=== PATIENT | male | born 1970 | race Caucasian/White ===

== ENCOUNTER → 2016-10-27 | Day surgery (SDC) | payer OTHER ==
[2016-10-23 14:25] LABS: BILIRUBIN NEGATIVE (NEGATIVE); BLOOD 1+ (NEGATIVE); CLARITY SL CLOUDY (CLEAR); COLOR YELLOW (YELLOW); GLUCOSE NEGATIVE (NEGATIVE); KETONE NEGATIVE (NEGATIVE); LEUKO ESTERASE 3+ (NEGATIVE); NITRITE POSITIVE (NEGATIVE); PROTEIN NEGATIVE (NEGATIVE); UROBILINOGEN 0.2 E.U./dl (0.2-1.0)
[2016-10-23 14:49] LABS: BACTERIA TRACE; RBC 0-2 rbc/hpf (0-2); WBC TNTC wbc/hpf (0-5)
[~2016-10-27] VITALS: Ht 190.5 cm; Wt 77.1 kg
[~2016-10-27] MED LIST: 'CLONIDINE0.1 MG PO; AMLODIPINE BESYL5 MG PO; BACTRIM 400 MG-1 TAB PO; CARVEDILOL3.125 MG PO; CARVEDILOL6.25 MG PO; CIPRO250 MG PO; Ciprofloxacin500 MG PO; FEROSUL325 MG PO; HYDROCODONE BIT1 T11 PO; HYDROXYZINE PAM25 MG PO; LOMOTIL 0.025 M1 TA1 PO; NORCO 5-325 TA1 EACH PO; NORTRIPTYLINE25 M1 PO; OMEPRAZOLE D/R20 MG PO; OSTERA TABLET1 EACH PO; PYRIDIUM200 M1 PO; QUETIAPINE FUMA50 M1 PO; TAB-A-VITE1 TA1 PO; VICODIN 5-3001 EACH PO; ZOFRAN ODT4 MG SL
--- NOTE | ~2016-10-27 | O ---
[place], [place] OPERATIVE NOTE [id number] UNIT #: [id number] ROOM: DOCTOR: VALENTE RAMSEY MD BIRTHDATE: [birth year] DOS: 10/27/2016 PREOPERATIVE DIAGNOSES: Neurogenic bladder, left hydronephrosis. POSTOPERATIVE DIAGNOSES: Neurogenic bladder, left hydronephrosis. PROCEDURE: Cystoscopy, left ureteral stent exchange. FINDINGS: Preop KUB taken shows a proximally displaced right ureteral stent to the proximal end, is in the upper ureter with most of the stent looked coiled into the bladder. DESCRIPTION OF PROCEDURE: After obtaining satisfactory general anesthesia, the patient was placed in lithotomy position. Genitalia was prepped and draped in the sterile manner. A 21 ACMI scope placed into the bladder, stent was seen in the bladder. The bladder loop was then caught with the stent remover and brought out to the urethral meatus. A 0.35 guidewire was then placed through the stent and it was advanced all the way up into the kidney. The stent was then removed. The cystoscope was backloaded over the guidewire and I replaced the stent with a size 26, 6-Samoan ureteral stent. A good pigtailing was seen in the kidney as well as in the bladder. The patient tolerated the procedure very well. He was then recovered from sedation and transferred to recovery room in satisfactory condition. VALENTE RAMSEY MD CM:OPRECORD:OPERATIVE NOTE [id number] VALENTE RAMSEY MD 11/05/16 1203 interface
[2016-10-27 10:10] VITALS: BP 131/80
[2016-10-27 11:00] VITALS: BP 134/86
[2016-10-27 11:15] VITALS: BP 124/86
[2016-10-27 11:30] VITALS: BP 137/77
== END | disposition home or self-care (01) ==
LOC: SDC 10-23 12:30
PROVIDERS: Urology
DX: T83.122A Displacement of indwelling ureteral stent, initial encounter (principal); N31.9 Neuromuscular dysfunction of bladder, unspecified; N13.30 Unspecified hydronephrosis; Z90.5 Acquired absence of kidney; I10 Essential (primary) hypertension; Z80.9 Family history of malignant neoplasm, unspecified; Z82.49 Family history of ischemic heart disease and other diseases of the circulatory system

== ENCOUNTER → 2017-01-02 | Outpatient (CLI) | payer OTHER ==
[2017-01-02 13:52] LABS: BASO % 0.7 % (0.0-1.0); EOS # 0.3 10*3/uL (0.0-0.4); EOS % 4.3 % (1.0-4.0); HEMATOCRIT 36.2 % (42.0-52.0); HEMOGLOBIN 11.6 g/dl (14.0-18.0); LYMPH # 1.6 10*3/uL (1.3-4.4); LYMPH % 25.7 % (27.0-41.0); MEAN CORPUSCULAR HGB 27.9 pg (27.0-31.0); MEAN PLATELET VOLUME 9.8 fl (9.6-12.3); MONO # 0.4 10*3/uL (0.1-1.0); MONO % 6.8 % (3.0-9.0); NEUT # 3.8 10*3/uL (2.3-7.9); NEUT % 62.3 % (47.0-73.0); PLATELET COUNT AUTOMATED 214 10*3/uL (130-400); RED BLOOD COUNT 4.16 10*6/uL (4.50-5.90); RED CELL DISTRI WIDTH 15.3 % (0-14.5)
[2017-01-02 14:19] LABS: POTASSIUM 4.4 mmol/L (3.5-5.1)
== END | disposition home or self-care (01) ==
LOC: LAB 13:20
PROVIDERS: Urology
DX: Z01.818 Encounter for other preprocedural examination (principal)

== ENCOUNTER → 2017-01-26 | Day surgery (SDC) | payer OTHER ==
[~2017-01-26] VITALS: Ht 190.5 cm; Wt 79.4 kg
--- NOTE | ~2017-01-26 | O ---
[place], [place] OPERATIVE NOTE [id number] UNIT #: [id number] ROOM: DOCTOR: VALENTE RAMSEY MD BIRTHDATE: [birth year] DOS: 01/26/2017 PROCEDURE: Cystoscopy and left ureteral stent exchange. FINDINGS: A KUB taken preop showed no evidence of a calcification on the kidney or bladder loop. DESCRIPTION OF PROCEDURE: After obtaining satisfactory sedation, the patient was placed in lithotomy position. Genitals prepped and draped in a sterile manner. A 21 ACMI cystoscope was then placed into the bladder without difficulty. Stent was seen coming from the left orifice. It was grasped, removed up to the external meatus. The 0.35 guidewire was then threaded through the stent and deployed all the way up into the kidney; however, the guidewire failed while trying to attempting backloading the cystoscope. The guidewire was then therefore completely removed. Cystoscope was replaced. Size 6 open-ended catheter was placed into the lower ureter. Contrast was injected. Hydroureter was noted. A 0.35 guidewire was then advanced through the open-ended catheter all the way up into the collecting system. The open-ended catheter was then advanced to the renal pelvis. The guidewire was removed and only about 2-3 mL of contrast was injected and renal pelvis was delineated. I then replaced the guidewire through the open-ended catheter. The open-ended catheter was removed and then backloaded. The size 6-Danish 28 cm ureteral stent was advanced all the way into the upper collecting system. The guidewire was removed and the stent was deployed with good pigtailing into upper collecting system and in the bladder. The patient tolerated the procedure very well. He was then recovered from sedation and was transferred to recovery room in satisfactory condition. VALENTE RAMSEY MD CM:OPRECORD:OPERATIVE NOTE [id number] VALENTE RAMSEY MD 01/26/17 1040 interface
[2017-01-26 08:45] VITALS: BP 141/77
[2017-01-26 09:40] VITALS: BP 128/71
[2017-01-26 09:55] VITALS: BP 130/79
[2017-01-26 10:10] VITALS: BP 138/73
== END | disposition home or self-care (01) ==
LOC: SDC 01-23 14:45
DX: N13.30 Unspecified hydronephrosis (principal); I10 Essential (primary) hypertension; Z82.49 Family history of ischemic heart disease and other diseases of the circulatory system; Z80.9 Family history of malignant neoplasm, unspecified

== ENCOUNTER 2017-02-03 11:03 | Emergency (ER) | payer OTHER ==
[~2017-02-03] VITALS: Ht 190.5 cm; Wt 79.4 kg
[2017-02-03 12:03] LABS: BILIRUBIN NEGATIVE (NEGATIVE); BLOOD 3+ (NEGATIVE); CLARITY SL CLOUDY (CLEAR); COLOR YELLOW (YELLOW); GLUCOSE NEGATIVE (NEGATIVE); KETONE NEGATIVE (NEGATIVE); LEUKO ESTERASE 3+ (NEGATIVE); NITRITE POSITIVE (NEGATIVE); PROTEIN TRACE (NEGATIVE); UROBILINOGEN 0.2 E.U./dl (0.2-1.0)
[2017-02-03 12:11] LABS: BACTERIA 1+
[2017-02-03 12:13] LABS: RBC 31-40 rbc/hpf (0-2); URINE REFLEX COMMENT YES (NO); WBC 51-100 wbc/hpf (0-5)
[2017-02-03 12:35] LABS: BASO # 0.1 10*3/uL (0.0-0.1); BASO % 0.8 % (0.0-1.0); EOS # 0.2 10*3/uL (0.0-0.4); EOS % 3.3 % (1.0-4.0); HEMATOCRIT 38.3 % (42.0-52.0); HEMOGLOBIN 12.3 g/dl (14.0-18.0); LYMPH # 1.7 10*3/uL (1.3-4.4); LYMPH % 25.2 % (27.0-41.0); MEAN CELL VOLUME 86.7 fl (80.0-94.0); MEAN CORPUSCULAR HGB 27.8 pg (27.0-31.0); MEAN CORPUSCULAR HGB CONC 32.1 g/dl (33.0-37.0); MEAN PLATELET VOLUME 9.3 fl (9.6-12.3); MONO # 0.5 10*3/uL (0.1-1.0); MONO % 7.6 % (3.0-9.0); NEUT # 4.2 10*3/uL (2.3-7.9); NEUT % 62.8 % (47.0-73.0); PLATELET COUNT AUTOMATED 203 10*3/uL (130-400); RED BLOOD COUNT 4.42 10*6/uL (4.50-5.90); WHITE BLOOD COUNT 6.6 10*3/uL (4.8-10.8)
[2017-02-03 12:49] LABS: ALBUMIN 3.8 gm/dl (3.1-4.5); BILIRUBIN, TOTAL 0.5 mg/dl (0.2-1.0); POTASSIUM 4.6 mmol/L (3.5-5.1); TOTAL PROTEIN 7.7 gm/dL (6.4-8.2)
[2017-02-03] MEDS ORDERED: CIPRO500 MG PO (15:18)
[2017-02-03] MEDS ORDERED: NORCO 5-325 TA1 EACH PO (15:18)
== END 2017-02-03 15:38 | disposition home or self-care (01) ==
LOC: ED 11:03
PROVIDERS: Student in an Organized Health Care Education/Training Program
DX: N39.0 Urinary tract infection, site not specified (principal); I10 Essential (primary) hypertension; Z91.041 Radiographic dye allergy status; Z88.6 Allergy status to analgesic agent; Z91.013 Allergy to seafood; Z79.899 Other long term (current) drug therapy

== ENCOUNTER → 2018-05-21 | Outpatient (CLI) | payer OTHER ==
[~2018-05-21] MED LIST changes: +CIPRO500 MG PO
[2018-05-21 09:12] LABS: BASO # 0.1 10*3/uL (0.0-0.1); BASO % 1.5 % (0.0-1.0); EOS # 0.5 10*3/uL (0.0-0.4); EOS % 8.1 % (1.0-4.0); HEMATOCRIT 42.9 % (42.0-52.0); HEMOGLOBIN 13.6 g/dl (14.0-18.0); LYMPH # 1.9 10*3/uL (1.3-4.4); LYMPH % 29.2 % (27.0-41.0); MEAN CELL VOLUME 89.7 fl (80.0-94.0); MEAN CORPUSCULAR HGB 28.5 pg (27.0-31.0); MEAN CORPUSCULAR HGB CONC 31.7 g/dl (33.0-37.0); MONO # 0.6 10*3/uL (0.1-1.0); MONO % 8.3 % (3.0-9.0); NEUT # 3.5 10*3/uL (2.3-7.9); NEUT % 52.6 % (47.0-73.0); PLATELET COUNT AUTOMATED 204 10*3/uL (130-400); RED BLOOD COUNT 4.78 10*6/uL (4.50-5.90); RED CELL DISTRI WIDTH 14.4 % (0-14.5); WHITE BLOOD COUNT 6.6 10*3/uL (4.8-10.8)
[2018-05-21 09:28] LABS: BILIRUBIN NEGATIVE (NEGATIVE); BLOOD 1+ (NEGATIVE); CLARITY CLOUDY (CLEAR); COLOR YELLOW (YELLOW); GLUCOSE NEGATIVE (NEGATIVE); KETONE NEGATIVE (NEGATIVE); LEUKO ESTERASE 3+ (NEGATIVE); NITRITE POSITIVE (NEGATIVE); SPECIFIC GRAVITY <= 1.005 (1.005-1.030); UROBILINOGEN 0.2 E.U./dl (0.2-1.0)
[2018-05-21 09:29] LABS: CREATININE 3.35 mg/dL (0.70-1.30); POTASSIUM 4.5 mmol/L (3.5-5.1)
[2018-05-21 09:59] LABS: BACTERIA 1+; WBC TNTC wbc/hpf (0-5)
== END | disposition home or self-care (01) ==
LOC: LAB 08:28
DX: N39.0 Urinary tract infection, site not specified (principal); N13.30 Unspecified hydronephrosis